=== PATIENT | male | born 1965 | race Caucasian/White ===

== ENCOUNTER 2021-08-29 23:49 | Observation (INO) | payer BC ==
[2021-08-30] MEDS ORDERED: CALCIUM CHLORIDE 100 MG/ML 10 ML SYRINGE IVP STA (00:22)
--- NOTE | 2021-08-30 00:25 | ED ---
Chest Pain HPI - General Chief Complaint: Chest Pain Stated Complaint: Chest Pain Time Seen by Provider: 08/30/21 00:01 Source: patient, RN notes reviewed, old records reviewed Mode of arrival: ambulatory Limitations: no limitations - History of Present Illness Initial Comments: This is a 56-year-old male to the ER for evaluation. Patient has no real s ignificant medical history coming in with chest pain today. Due to the chest pain patient took his blood pressure at home and noted to be significantly elevated. Symptoms have persisted and because patient come the emergency department tonight. Otherwise patient has no significant medical history takes no medications and has no other complaints. MD Complaint: chest pain -: hour(s) Onset: during rest Pain Location: left chest, right chest Pain Radiation: back Severity: moderate Severity scale (1-10): 5 Quality: heaviness Consistency: constant Improves With: nothing Worsens With: nothing Anginal Symptoms: nausea, dyspnea Other Symptoms: palpitations Treatments Prior to Arrival: none - Related Data Allergies Allergy/AdvReac Type Severity Reaction Status Date / Time No Known Allergies Allergy Verified 08/29/21 23:58 Review of Systems ROS Statement: Those systems with pertinent positive or pertinent negative responses have been documented in the HPI. ROS Other: All systems not noted in ROS Statement are negative. EKG Findings - EKG Comments: EKG Findings:: EKG is sinus bradycardia 58 ND 150 QRS 88 QTc 424 Past Medical History Past Medical History: Asthma History of Any Multi-Drug Resistant Organisms: None Reported Past Surgical History: Appendectomy Past Psychological History: No Psychological Hx Reported Smoking Status: Current every day smoker Past Alcohol Use History: Occasional Past Drug Use History: None Reported General Exam Limitations: no limitations Course Vital Signs 08/29/21 23:54 Temperature 99.2 F Pulse Rate 63 Respiratory 20 Rate Blood Pressure 159/95 O2 Sat by Pulse 95 Oximetry - Reevaluation(s) Reevaluation #1: 08/30/21 02:06 Medical record is reviewed Reevaluation #2: 08/30/21 02:06 Or pressure remains controlled here in the ER Reevaluation #3: 08/30/21 02:06 Patient's pain is controlled Reevaluation #4: 08/30/21 02:06 Patient family informed results and questions answered - Consultations Consultation #1: Spoke with Dr. Win who agrees to admit this patient Chest Pain MDM - MDM 56 male to the emergency department for evaluation of chest pain today. Patient has a CT angios which is negative for acute disease blood pressure was elevated, patient does have elevated troponin will be admitted for cardiology to evaluate Critical Care Time Critical Care Time: Yes Total Critical Care Time: 31 Disposition Clinical Impression: Atypical chest pain, Chest pain, Acute non-ST elevation myocardial infarction (NSTEMI) Disposition: ADMITTED IP TO THIS HOSP Condition: Serious Is patient prescribed a controlled substance at d/c from ED?: No Referrals: Princess Cai MD [Primary Care Provider] - 1-2 days
[2021-08-30] MEDS ORDERED: CALCIUM GLUCONATE 2 GM in SODIUM CHLORIDE 0.9% 100 ML IVPB ONE (00:30)
--- NOTE | 2021-08-30 00:57 | XR ---
EXAMINATION TYPE: XR chest 2V DATE OF EXAM: 08/30/2021 COMPARISON: NONE HISTORY: Pain TECHNIQUE: 2 views FINDINGS: There is no heart failure nor confluent pneumonic infiltrate. Costophrenic angles are clear . There are chest leads. Bony thorax is intact. IMPRESSION: Normal chest.
[2021-08-30 01:17] LABS: Basophils # (A) 0.1 k/uL (0-0.2); Basophils % (A) 1 %; Eosinophils # (A) 0.4 k/uL (0-0.7); Eosinophils % (A) 6 %; HCT 48.6 % (39.0-53.0); HGB 16.6 gm/dL (13.0-17.5); Lymphocytes # (A) 2.1 k/uL (1.0-4.8); Lymphocytes % (A) 32 %; MCH 31.6 pg (25.0-35.0); MCHC 34.1 g/dL (31.0-37.0); MCV 92.7 fL (80.0-100.0); Mean Platelet Volume 9.8; Monocytes # (A) 0.4 k/uL (0-1.0); Monocytes % (A) 7 %; Neutrophils # (A) 3.2 k/uL (1.3-7.7); Neutrophils % (A) 51 %; Platelet Count 162 k/uL (150-450); RBC 5.24 m/uL (4.30-5.90); RDW 12.6 % (11.5-15.5); WBC 6.4 k/uL (3.8-10.6)
[2021-08-30 01:28] LABS: ALT 26 U/L (4-49); AST 29 U/L (17-59); African American GFR (CKD) >90 (>60 ml/min/1.73 sqM); Albumin 4.2 g/dL (3.5-5.0); Alkaline Phosphatase 53 U/L (38-126); Anion Gap 8 mmol/L; Blood Urea Nitrogen 14 mg/dL (9-20); Calcium 10.2 mg/dL (8.4-10.2); Carbon Dioxide 21 mmol/L (22-30); Chloride 107 mmol/L (98-107); Glucose 116 mg/dL (74-99); Lipase 65 U/L (23-300); Magnesium 2.1 mg/dL (1.6-2.3); Non-African American GFR(CKD) >90 (>60 ml/min/1.73 sqM); Potassium 4.2 mmol/L (3.5-5.1); Sodium 136 mmol/L (137-145); Total Bilirubin 0.4 mg/dL (0.2-1.3); Total Protein 6.9 g/dL (6.3-8.2)
[2021-08-30 01:32] LABS: INR 0.9 (<1.2); Partial Thromboplastin Time 22.1 sec (22.0-30.0)
--- NOTE | 2021-08-30 01:51 | CT ---
EXAMINATION TYPE: CT angio chest DATE OF EXAM: 08/30/2021 COMPARISON: None HISTORY: pe CT DLP: 339.2 mGycm Automated exposure control for dose reduction was used. CONTRAST: Performed with IV Contrast, patient injected with 100 mL of Isovue 370. Images obtained from the thoracic inlet to the diaphragm with IV contrast. There are 3-D post process ed images. There is minimal subsegmental atelectasis at the lung bases. There is no evidence of pulmonary mass. Heart size is normal. There is no pericardial effusion. There is no mediastinal adenopathy. There are no hilar masses. There is normal contrast opacification of the pulmonary arteries. There are no fill ing defects. Thoracic aorta is intact. There is no aneurysm or dissection. The thoracic spine is intact. There is no compression fracture. Sternum is intact. The ribs are intac t. IMPRESSION: No evidence of pulmonary embolism. Mild subsegmental atelectasis at the lung bases. Normal heart.
--- NOTE | 2021-08-30 01:58 | CT ---
EXAMINATION TYPE: CT abdomen pelvis w con DATE OF EXAM: 08/30/2021 COMPARISON: None HISTORY: pain CT DLP: 868.8 mGycm Automated exposure control for dose reduction was used. CONTRAST: Performed with IV Contrast, patient injected with 100 mL of Isovue 370. Images obtained from the diaphragm to the floor the pelvis with IV contrast. Lung bases are clear of consolidation. There is no pleural effusion. There is no pericardial effusion . Liver spleen stomach pancreas gallbladder appear intact. Bile ducts are not dilated. There is no ad renal mass. Kidneys show satisfactory contrast opacification. There is no hydronephrosis. Delayed michelle ges show normal renal excretion. There are clips apparently from appendectomy. Bladder distends priscilla hly. There is fat containing left inguinal hernia. There is no free fluid in the pelvis. There is no sign of a pelvic mass. There is no mesenteric edema. There is no ascites or free air. There is no bowel obstruction. The lum bar vertebra have normal alignment. There is no compression fracture. The bony pelvis is intact. Hip joints are intact. IMPRESSION: Negative CT scan abdomen and pelvis.
[2021-08-30] MEDS ORDERED: NITROGLYCERIN SL TABS 0.4 MG TAB SUBLINGUAL PRN ×2 (02:03→10:04)
[2021-08-30] MEDS ORDERED: HEPARIN SODIUM 1,000 UN/ML (10ML VL) IV ONE (02:03)
[2021-08-30] MEDS ORDERED: ASPIRIN 81 MG PO STA (02:03)
[2021-08-30] MEDS ORDERED: HEPARIN SOD,PORK IN 0.45% NACL 25,000 UNIT in 0.45% NACL 1 250ML.BAG IV SCH (02:15)
[2021-08-30] MEDS: SODIUM CHLORIDE 0.9% 1,000 ML IV SCH (02:35)
[2021-08-30] MEDS: MORPHINE SULFATE 4 MG/ML SYRINGE IV PRN ×2 (02:37→07:06)
[2021-08-30] MEDS ORDERED: ATORVASTATIN 80 MG TAB PO SCH (09:00)
[2021-08-30] MEDS ORDERED: ALPRAZolam 0.25 MG TAB PO PRN (10:04)
[2021-08-30] MEDS ORDERED: ATORVASTATIN 80 MG TAB PO STA (10:04)
[2021-08-30] MEDS ORDERED: ASPIRIN 325 MG TAB PO STA (10:04)
[2021-08-30] MEDS ORDERED: ALPRAZolam 0.5 MG TAB PO PRN (10:04)
[2021-08-30 10:38] LABS: Glucose,Whole Blood 104 mg/dL (75-99)
[2021-08-30] MEDS: SODIUM CHLORIDE 0.9% 1,000 ML in EMPTY BAG 1 BAG IV SCH ×2 (10:54→23:39)
[2021-08-30] MEDS ORDERED: LIDOCAINE 1% INJ 10MG/ML (20 ML MDV) ONE (12:00)
[2021-08-30] MEDS ORDERED: VERAPAMIL 2.5 MG/ML 2 ML AMP ONE (12:00)
[2021-08-30] MEDS ORDERED: IV FLUID CONTINUATION 700 ML IV ONE (12:07)
[2021-08-30] MEDS ORDERED: fentaNYL (PF) 50 MCG/ML 2 ML AMP ONE (12:24)
--- NOTE | 2021-08-30 12:29 | CONS ---
CONSULTATION Mr. August is a 56-year-old male with a history of chronic tobacco use who presented with an episode of chest discomfort radiating to the right arm. Patient denies any prior similar symptoms in the past. He is usually active physically without difficulty. He denies any dizziness or palpitations. He was found to have evidence of troponin elevation. Patient denies any known history of coronary artery disease. He is usually active physically without difficulty. He has no history of hypertension, hyperlipidemia or documented diabetes. He is a smoker. His medication at home includes Trelegy Ellipta and albuterol. REVIEW OF SYSTEMS: RESPIRATORY SYSTEM: He had dyspnea on exertion but no recent wheezing or cough. GI SYSTEM: No recent GI bleeding. No peptic ulcer disease. SYSTEM: No dysuria or hematuria. NERVOUS SYSTEM: No stroke or seizure. PHYSICAL EXAMINATION: Eutwv-ycehz-mnqr-old male, alert, oriented, in no apparent distress. Blood pressure 115/90 with a heart rate in the 50s. HEAD: Normocephalic. EYES: Sclerae anicteric. NECK: Good carotid upstroke. No bruit. No jugular venous distention. LUNGS: Clear to auscultation. HEART: Regular rate and rhythm. S1, S2. No S3. No S4. No murmur or rub. ABDOMEN: Soft, nontender. Positive bowel sounds. No organomegaly. EXTREMITIES: No edema. Intact distal pulses. LAB DATA: Troponin 0.615 and 1.37. BUN and creatinine 14 and 0.88. Potassium 4.2. Hemoglobin of 16.6. EKG revealed a sinus mechanism, normal axis and intervals. No acute ST-segment changes. CT angiogram of the chest revealed no evidence of pulmonary embolism and his chest x-ray shows no acute infiltrate. IMPRESSION: 1. Non GL-omrotml-whtgxijin myocardial infarction. 2. History of chronic tobacco use. RECOMMENDATIONS: In view of the findings and the presentation, I have recommended proceeding with coronary angiography to assess his status and guide his treatment. The patient at home noted his blood pressure was elevated, but it is under good control at this time. I have discussed with him the findings and recommendations, and he is in full understanding and agreement. Thank you for this consult. Will follow with you. MMODL / IJN: [id number] /
[2021-08-30] MEDS ORDERED: fentaNYL (PF) 50 MCG/ML 2 ML AMP IV ONE (12:37)
[2021-08-30] MEDS ORDERED: SODIUM CHLORIDE 0.9% 500 ML 500 ML IV ONE (12:40)
[2021-08-30] MEDS ORDERED: MIDAZOLAM 2 MG/2 ML VIAL IV ONE (12:45)
[2021-08-30] MEDS ORDERED: LIDOCAINE 1% INJ 10MG/ML (20 ML MDV) SQ ONE (12:45)
[2021-08-30] MEDS ORDERED: HEPARIN SODIUM 1,000 UN/ML (10ML VL) ONE (12:52)
[2021-08-30] MEDS ORDERED: IOPAMIDOL-370 125ML BTL INJ ONE (13:01)
[2021-08-30] MEDS ORDERED: RX INFO: IV CONTRAST WAS GIVEN 1 EACH MISC MISCELLANE PRN (13:08)
[2021-08-30] MEDS ORDERED: SODIUM CHLORIDE 0.9% 1,000 ML IV SCH (13:15)
--- NOTE | 2021-08-30 13:54 | CC ---
CARDIAC CATHETERIZATION REPORT Mr. August is a 56-year-old male with known history of chronic tobacco use and family history of premature coronary artery disease who presented to the hospital with symptoms of chest discomfort and mild troponin elevation without electrocardiographic changes. In view of that, recommendation was made regarding cardiac catheterization. The procedure as well as its risks and the complications were discussed with the patient, who was in full understanding and agreement. PROCEDURE DESCRIPTION: The patient was brought to the clinical laboratory technician in a fasting, semi-sedated state after receiving fentanyl and Benadryl and achieving a moderate conscious sedated state. Using Xylocaine anesthesia and Seldinger technique, a 6-Malagasy sheath was introduced in the right radial artery. Selective right and left coronary angiography was performed using 5-Malagasy 3-1/2 bend right and left Juan catheters. Multiple views were taken of the arteries, including hemiaxial views. Following that, a 5-Malagasy tight pigtail catheter was introduced into the left ventricle, and left ventriculogram in the SUNG view was obtained. Following that, catheter and sheath were removed. Hemostasis was obtained with deployment of a TR band. There was no immediate complication. Patient was returned to his room in stable condition. Of note, the patient received 4000 units of intravenous heparin as well as intraarterial verapamil. FINDINGS: LEFT MAIN: This is a short-sized vessel bifurcating into left circumflex and left anterior descending artery. Left main coronary artery has no evidence of high-grade stenosis. LEFT ANTERIOR DESCENDING ARTERY: This is a large-sized vessel giving rise to a large diagonal branch. The LAD reaches toward the apex with a wrap around apex segment. The LAD after the takeoff of the first diagonal branch has a 10% to 20% percent plaque. The rest of the vessel has no high-grade stenosis. LEFT CIRCUMFLEX: This is a nondominant vessel, moderate in caliber, giving rise to two obtuse marginal branches. The second one is large in caliber. The left circumflex as well as its branches have no evidence of obstructive coronary artery disease. RIGHT CORONARY ARTERY: This is a large dominant vessel bifurcating distally into PDA and posterolateral segment and branches. The right coronary artery as well as its branches have no evidence of obstructive coronary artery disease. LEFT VENTRICULOGRAM: Left ventriculogram was performed in 30-degree SUNG view and revealed normal left ventricular size and systolic function. Ejection fraction is 60%. There was no significant mitral regurgitation. HEMODYNAMICS: There was no gradient across the aortic valve. The left ventricular end- diastolic pressure was 8 to 10 mmHg. CONCLUSION: 1. Minimal plaque in the mid LAD. 2. Normal left ventricular size and systolic function. RECOMMENDATIONS: At this time I will continue medical therapy. It is possible that the patient had vasospastic disease. There is no evidence to suggest haziness and ruptured plaque. I will continue the present medical therapy. I will encourage him to stop smoking. Depending on his progress, further recommendations will be made. Those findings and recommendations were discussed with the patient and his family, and they are in full understanding and agreement. Duration of the sedation was 19 minutes. ORION / THIERRYN: [id number] /
[2021-08-30] MEDS ORDERED: ALBUTEROL NEBULIZED 2.5 MG/3 ML INHALATION PRN (16:25)
--- NOTE | 2021-08-30 16:28 | P.HPIM ---
History of Present Illness H&P Date: 08/30/21 Didier August, is a 56-year-old male patient of Dr. Cia, who presented to [facility] emergency room with a chief complaint of chest pain He was evaluated in the emergency room vital examination on presentation revealed Laboratory data reveals a first troponin level of 0.615 Testing in the emergency room revealed Patient was admitted to medical floor for further evaluation and treatment, he was started on IV heparin cardiology consultation was requested Past medical history is significant for history of asthma patient denies any previous history of coronary artery disease On review of systems Patient was seen and examined on the medical floor, he is alert and oriented x 3 in no distress, he denies any complaints there is no fever or chills no headache or dizziness no chest pain at this time no shortness of breath no palpitation no cough no nausea or vomiting no abdominal pain no diarrhea no blood in the stools no burning with urination no frequency or urgency and no hematuria, there is no weakness or numbness in any of the extremities no change in vision speech or gait. Past Medical History Past Medical History: Asthma History of Any Multi-Drug Resistant Organisms: None Reported Past Surgical History: Appendectomy Past Psychological History: No Psychological Hx Reported Smoking Status: Current every day smoker Past Alcohol Use History: Occasional Past Drug Use History: None Reported - Past Family History Mother Additional Family Medical History / Comment(s): triple bypass Medications and Allergies Home Medications Medication Instructions Recorded Confirmed Type Albuterol Sulfate [Albuterol 2 puff INHALATION RT-QID PRN 08/30/21 08/30/21 History Sulfate Hfa] Fluticasone/Umeclidin/Vilanter 1 puff INHALATION RT-DAILY 08/30/21 08/30/21 History [Lisa Pace 100-62.5-25] Allergies Allergy/AdvReac Type Severity Reaction Status Date / Time No Known Allergies Allergy Verified 08/30/21 09:05 Physical Exam Vitals: Vital Signs Temp Pulse Pulse Pulse Pulse Resp BP 08/30/21 13:53 59 L 16 08/30/21 13:38 54 L 16 08/30/21 13:23 57 L 16 08/30/21 08:00 98.8 F 49 L 16 08/30/21 03:50 98.6 F 58 L 17 08/30/21 02:36 56 L 17 140/90 08/29/21 23:54 99.2 F 63 20 159/95 BP Pulse Ox 08/30/21 13:53 99/72 08/30/21 13:38 109/74 08/30/21 13:23 109/72 08/30/21 08:00 115/91 96 08/30/21 03:50 151/96 96 08/30/21 02:36 98 08/29/21 23:54 95 Intake and Output 08/30/21 08/30/21 08/30/21 06:59 14:59 22:59 Intake Total 785 Balance 785 Intake: IV 125 Intake, IV Titration 300 Amount Sodium Chloride 0.9% 1, 300 000 ml @ 75 mls/hr IV . [id number] [facility] Rx#:[id number] Oral 360 Other: # Voids 1 Weight 74.843 kg In general patient is alert and oriented x 3 in no distress HEENT head normocephalic and atraumatic Neck is supple no JVD no goiter no lymphadenopathy no carotid bruit Chest examination is clear to auscultation no crackles no wheezing Cardiac exam reveals regular heart sounds S1 and S2 no gallops no murmurs Abdomen is soft nontender no organomegaly with normal bowel sounds Extremity exam reveals no edema no cyanosis or clubbing Neurological examination reveals no gross focal deficits Results CBC & Chem 7: 08/30/21 00:59 08/30/21 00:59 Labs: Abnormal Lab Results - Last 24 Hours (Table) 08/30/21 08/30/21 08/30/21 Range/Units 00:59 00:59 05:35 APTT (22.0-30.0) sec Sodium 136 L (137-145) mmol/L Carbon Dioxide 21 L (22-30) mmol/L Glucose 116 H (74-99) mg/dL POC Glucose (mg/dL) (75-99) mg/dL Troponin I 0.615 H* 1.370 H* (0.000-0.034) ng/mL 08/30/21 08/30/21 08/30/21 Range/Units 09:28 09:28 10:36 APTT 37.6 H (22.0-30.0) sec Sodium (137-145) mmol/L Carbon Dioxide (22-30) mmol/L Glucose (74-99) mg/dL POC Glucose (mg/dL) 104 H (75-99) mg/dL Troponin I 1.190 H* (0.000-0.034) ng/mL Thrombosis Risk Factor Assmnt - Choose All That Apply Any of the Below Risk Factors Present?: Yes Each Factor Represents 1 point: Age 41-60 years, Obesity (BMI >25) Other Risk Factors: No Other congenital or acquired thrombophilia - If yes, enter type in comment: No Thrombosis Risk Factor Assessment Total Risk Factor Score: 2 Thrombosis Risk Factor Assessment Level: Low Risk Assessment and Plan Plan: Episode of chest pain with elevated troponin level suggestive of non-ST elevation myocardial infarction Patient is admitted to telemetry floor cardiology consultation was requested He is scheduled for cardiac catheterization on 08/30/2021 Underlying history of tobacco use Patient counseled in length to quit smoking Will start with nicotine patch at this time Underlying history of asthma Home inhalers reviewed and reordered At this time we are awaiting further intervention by cardiology will follow closely
--- NOTE | 2021-08-30 17:16 | ECHOF ---
Referral Reason:elevTrope MEASUREMENTS -------- HEIGHT: 170.2 cm WEIGHT: 74.8 kg BP: RVIDd: 2.9 cm (< 3.3) IVSd: 1.1 cm (0.6 - 1.1) LVIDd: 3.3 cm (3.9 - 5.3) LVPWd: 1.2 cm (0.6 - 1.1) IVSs: 1.2 cm LVIDs: 2.9 cm LVPWs: 1.4 cm LA Diam: 3.2 cm (2.7 - 3.8) LAESV Index (A-L): 21.59 ml/m Ao Diam: 3.4 cm (2.0 - 3.7) AV Cusp: 1.7 cm (1.5 - 2.6) LA Diam: 3.5 cm (2.7 - 3.8) MV EXCURSION: 17.007 mm (> 18.000) MV EF SLOPE: 64 mm/s (70 - 150) EPSS: 0.5 cm MV E Lino: 0.33 m/s MV DecT: 296 ms MV A Lino: 0.64 m/s MV E/A Ratio: 0.52 RAP: 5.00 mmHg RVSP: 14.14 mmHg FINDINGS -------- Sinus rhythm. This was a technically adequate study. The left ventricular size is normal. There is borderline concentric left ventricular hypertrophy. Overall left ventricular systolic function is normal with, an EF between 55 - 60 %. The diastolic filling pattern is normal for the age of the patient 4.39. The right ventricle is normal in size. Normal LA size by volume 22+/-6 ml/m2. The right atrial size is normal. The aortic valve is trileaflet, and appears structurally normal. No aortic stenosis or regurgitation. There is no evidence of aortic regurgitation. The mitral valve is normal. There is trace mitral regurgitation. The tricuspid valve appears structurally normal. Mild tricuspid regurgitation present. Right vent ricular systolic pressure is normal at < 35 mmHg. There is no pulmonic regurgitation present. There is no pericardial effusion. CONCLUSIONS -------- 1. There is borderline concentric left ventricular hypertrophy. 2. Overall left ventricular systolic function is normal with, an EF between 55 - 60 %. 3. Normal LA size by volume 22+/-6 ml/m2. 4. The aortic valve is trileaflet, and appears structurally normal. No aortic stenosis or regurgitati on. 5. There is trace mitral regurgitation. 6. Mild tricuspid regurgitation present. 7. There is no pericardial effusion. [employer] PROFESSOR: Shaila Rodrigues RDCS
[2021-08-30] MEDS: NICOTINE 14MG/24HR PATCH TRANSDERM SCH (18:16)
[2021-08-30 23:33] VITALS: RESP 16
[2021-08-31] MEDS: SODIUM CHLORIDE 0.9% 1,000 ML IV SCH (06:36)
[2021-08-31] MEDS ORDERED: HEPARIN SODIUM,PORCINE 10,000 UNIT in SODIUM CHLORIDE 0.9% 1,000 ML IRRIGATION PRN (07:00)
[2021-08-31] MEDS ORDERED: HEPARIN SODIUM,PORCINE 2,500 UNIT in SODIUM CHLORIDE 0.9% 250 ML IRRIGATION PRN (07:00)
[2021-08-31] MEDS ORDERED: SYMBICORT 80-4.5 MCG INHALER INHALATION SCH (08:00)
[2021-08-31] MEDS ORDERED: NON FORMULARY DRUG (Fluticasone/Umeclidin/Vilanter [Trelegy Ellipta 100-62.5-25] 1 EACH Ea INHALATION SCH (08:00)
[2021-08-31] MEDS ORDERED: IPRATROPIUM 0.5 MG/2.5 ML NEBU INHALATION SCH (08:00)
[2021-08-31 08:51] VITALS: PULSE 60
[2021-08-31] MEDS ORDERED: ASPIRIN 81 MG PO SCH (09:00)
[2021-08-31] MEDS ORDERED: ASPIRIN 325 MG TAB PO SCH (09:00)
[2021-08-31] MEDS ORDERED: amLODIPine 2.5 MG TAB PO SCH (09:00)
[2021-08-31] MEDS ORDERED: ATORVASTATIN 40 MG TAB PO SCH (09:00)
[2021-08-31 09:20] LABS: African American GFR (CKD) >90 (>60 ml/min/1.73 sqM); Anion Gap 6 mmol/L; Blood Urea Nitrogen 13 mg/dL (9-20); Calcium 8.5 mg/dL (8.4-10.2); Carbon Dioxide 23 mmol/L (22-30); Chloride 108 mmol/L (98-107); Glucose 169 mg/dL (74-99); Non-African American GFR(CKD) >90 (>60 ml/min/1.73 sqM); Sodium 137 mmol/L (137-145)
[2021-08-31] MEDS: NICOTINE 14MG/24HR PATCH TRANSDERM SCH (09:24)
--- NOTE | 2021-08-31 10:38 | P.DS ---
Providers Date of admission: 08/30/21 02:03 Expected date of discharge: 08/31/21 Attending physician: Anette Win Consults: 08/30/21 02:03 Consult Physician Urgent Consulting Provider: Jeramy Fong Consult Reason/Comments: nctemi Do you want consulting provider notified?: Yes Primary care physician: Princess Cai Hospital Course: Discharge diagnosis Episode of chest pain with elevated troponin level suggestive of non-ST elevation myocardial infarction Patient is admitted to telemetry floor cardiology consultation was requested He is scheduled for cardiac catheterization on 08/30/2021 Underlying history of tobacco use Patient counseled in length to quit smoking Will start with nicotine patch at this time Underlying history of asthma Home inhalers reviewed and reordered At this time we are awaiting further intervention by cardiology will follow closely Hospital course Didier August, is a 56-year-old male patient of Dr. Cai, who presented to [facility] emergency room with a chief complaint of chest pain He was evaluated in the emergency room vital examination on presentation revealed Laboratory data reveals a first troponin level of 0.615 Testing in the emergency room revealed Patient was admitted to medical floor for further evaluation and treatment, he was started on IV heparin cardiology consultation was requested Past medical history is significant for history of asthma patient denies any previous history of coronary artery disease On review of systems Patient was seen and examined on the medical floor, he is alert and oriented x 3 in no distress, he denies any complaints there is no fever or chills no headache or dizziness no chest pain at this time no shortness of breath no palpitation no cough no nausea or vomiting no abdominal pain no diarrhea no blood in the stools no burning with urination no frequency or urgency and no hematuria, there is no weakness or numbness in any of the extremities no change in vision speech or gait. On 08/31/2021 patient underwent cardiac catheterization yesterday revealing minimal plaque in the mid LAD. Normal left ventricle size and systolic function. Patient is currently resting comfortably in bed. At this time patient denies chest pain or shortness breath. She denies any urinary burning or frequency. Patient reports he has been up ambulating without issue. Right radial site is clean dry and intact. Current vitals 98.0 temp, heart rate 60, respiratory rate 16 and blood pressure 128/74. Patient pulse ox 96% on room air. Patient again indicated on the importance of complete smoking sensation. Patient also started on Norvasc aspirin and Lipitor during hospital stay. Awaiting cardiology for final clearance this was discussed with nursing staff and verbal understanding. Patient to follow-up with PCP and cardiology services for further management Patient Condition at Discharge: Stable Plan - Discharge Summary Discharge Rx Participant: No New Discharge Prescriptions: New amLODIPine [Norvasc] 2.5 mg PO DAILY 30 Days #30 tab Aspirin 81 mg PO DAILY 30 Days #30 tab Nicotine 14Mg/24Hr Patch [Habitrol] 1 patch TRANSDERM DAILY 30 Days #30 patch Atorvastatin [Lipitor] 40 mg PO DAILY 30 Days #30 tab Continue Fluticasone/Umeclidin/Vilanter [Trelegy Ellipta 100-62.5-25] 1 puff INHALATION RT-DAILY Albuterol Sulfate [Albuterol Sulfate Hfa] 2 puff INHALATION RT-QID PRN PRN Reason: Shortness Of Breath Discharge Medication List Albuterol Sulfate [Albuterol Sulfate Hfa] 2 puff INHALATION RT-QID PRN 08/30/21 [History] Fluticasone/Umeclidin/Vilanter [Trelegy Ellipta 100-62.5-25] 1 puff INHALATION RT-DAILY 08/30/21 [History] Aspirin 81 mg PO DAILY 30 Days #30 tab 08/31/21 [Rx] Atorvastatin [Lipitor] 40 mg PO DAILY 30 Days #30 tab 08/31/21 [Rx] Nicotine 14Mg/24Hr Patch [Habitrol] 1 patch TRANSDERM DAILY 30 Days #30 patch 08/31/21 [Rx] amLODIPine [Norvasc] 2.5 mg PO DAILY 30 Days #30 tab 08/31/21 [Rx] Follow up Appointment(s)/Referral(s): Princess Cai MD [Primary Care Provider] - 1-2 days Jeramy Fong MD [STAFF PHYSICIAN] - 1 Week Activity/Diet/Wound Care/Special Instructions: Activity as tolerated Diet heart healthy Discharge Disposition: HOME SELF-CARE
[2021-08-31 10:55] VITALS: BP 107/62; TEMP 98.2
[2021-08-31 11:48] LABS: Chol/HDL Ratio 4.38 Ratio; LDL Cholesterol,Calculated 95.7 mg/dL (0.0-131.0)
--- NOTE | 2021-08-31 13:14 | PN ---
PROGRESS NOTE Mr. August is a 56-year-old male who presented with symptoms of chest discomfort and he had mild troponin elevation without EKG changes. Underwent cardiac catheterization and was found to have no significant obstructive disease with preserved systolic function raising possibility of vasospastic disease. He is doing well this morning. He has no chest pain. No dizziness. No palpitation. No nausea. He continued on aspirin once a day, amlodipine 2.5 mg daily, Lipitor 40 mg daily. PHYSICAL EXAMINATION: Blood pressure 128/70 with a heart rate in the 60s. LUNGS: Clear. HEART: Regular rate and rhythm. S1, S2. No S3. No rub. ABDOMEN: Soft, nontender. Right radial pulse intact. LAB DATA: Lab data revealed BUN and creatinine 13 and 0.9. His echocardiogram revealed a preserved systolic function. IMPRESSION: 1. Non ST-segment elevation myocardial infarction, could be vasospastic disease. No evidence to suggest a ruptured plaque. 2. History of chronic tobacco use. RECOMMENDATIONS: From the cardiac standpoint, the patient should be able to be discharged home. I have discussed with him the importance of smoking cessation. He will continue on the low dose of calcium channel kirby and depending on his progress, further recommendations will be made. MMODL / IJN: [id number] /
== END 2021-08-31 11:30 | disposition home or self-care (01) ==
LOC: EC 23:49 → 3SCARD 08-30 02:03 → INTOOBSV 08-30 02:03 → 3SCARD 08-30 03:17 → UNDODISIN 08-31 11:30
PROVIDERS: ADMIT Internal Medicine; ATTEND Internal Medicine
DX: R07.89 Other chest pain (principal); R77.8 Other specified abnormalities of plasma proteins; R11.0 Nausea; R00.2 Palpitations; R03.0 Elevated blood-pressure reading, without diagnosis of hypertension; J45.909 Unspecified asthma, uncomplicated; F17.200 Nicotine dependence, unspecified, uncomplicated; I07.1 Rheumatic tricuspid insufficiency; E66.9 Obesity, unspecified; Z68.26 Body mass index [BMI] 26.0-26.9, adult; Z20.822 Contact with and (suspected) exposure to COVID-19; Z71.6 Tobacco abuse counseling; Z79.51 Long term (current) use of inhaled steroids; Z79.899 Other long term (current) drug therapy; Z90.89 Acquired absence of other organs; Z82.49 Family history of ischemic heart disease and other diseases of the circulatory system
CPT/HCPCS: 96376; 96365; 96375; 99291; 36415; 94640 ×2; 93005; 93306; 93458; 85379; 83880; 80061; 80053; 80048; 83690; 83735; 84484; 85025; 85610; 85730; 87635; 71046; 71275; 74177; G0378 ×2; C1894; C1769; S4990 ×2; J2250; J2270; J2001; J3010; J1644 ×3; Q9967 ×2

== ENCOUNTER 2022-10-31 10:06 | Emergency (ER) | payer BC ==
[2022-10-31] MEDS ORDERED: IBUPROFEN 600 MG TAB PO STA (11:08)
[2022-10-31] MEDS ORDERED: ACETAMINOPHEN TAB 325 MG TAB PO STA (11:08)
--- NOTE | 2022-10-31 11:11 | ED ---
URI HPI - General Chief Complaint: Upper Respiratory Infection Stated Complaint: DEB, cough, chest discomfort Time Seen by Provider: 10/31/22 11:03 Source: patient, RN notes reviewed, old records reviewed Mode of arrival: ambulatory Limitations: no limitations - History of Present Illness Initial Comments: [id number] 57-year-old male presents to the emergency room with complaints of cough congestion and fever for the past 2 days. Patient is a half pack a day smoker. History of asthma. Denies any history of COPD. MD Complaint: fever, cough, sore throat -: days(s) (2) Severity scale (1-10): 9 Context: sick contacts (family at bedside also c/o tickle in throat) Associated Symptoms: abdominal pain (from coughing) Treatments Prior to Arrival: none - Related Data Home Medications Medication Instructions Recorded Confirmed Albuterol Sulfate [Albuterol 2 puff INHALATION RT-Q6H PRN 08/30/21 10/31/22 Sulfate Hfa] Fluticasone/Umeclidin/Vilanter 1 puff INHALATION RT-DAILY 08/30/21 10/31/22 [Trelemeggan Ellipta 100-62.5-25] Famotidine [Pepcid] 20 mg PO DAILY 10/31/22 10/31/22 Levothyroxine Sodium [Synthroid] 112 mcg PO DAILY 10/31/22 10/31/22 Loratadine [Claritin] 10 mg PO DAILY 10/31/22 10/31/22 Previous Rx's Medication Instructions Recorded Aspirin 81 mg PO DAILY 30 Days #30 tab 08/31/21 Atorvastatin [Lipitor] 40 mg PO DAILY 30 Days #30 tab 08/31/21 amLODIPine [Norvasc] 2.5 mg PO DAILY 30 Days #30 tab 08/31/21 Oseltamivir [Tamiflu] 75 mg PO Q12HR #10 cap 10/31/22 Allergies Allergy/AdvReac Type Severity Reaction Status Date / Time No Known Allergies Allergy Verified 10/31/22 11:57 Review of Systems ROS Statement: Those systems with pertinent positive or pertinent negative responses have been documented in the HPI. ROS Other: All systems not noted in ROS Statement are negative. Past Medical History Past Medical History: Asthma History of Any Multi-Drug Resistant Organisms: None Reported Past Surgical History: Appendectomy Past Psychological History: No Psychological Hx Reported Smoking Status: Current every day smoker Past Alcohol Use History: Occasional Past Drug Use History: None Reported - Past Family History Mother Additional Family Medical History / Comment(s): triple bypass General Exam Limitations: no limitations General appearance: alert, in no apparent distress Head exam: Present: atraumatic Eye exam: Absent: scleral icterus, conjunctival injection, periorbital swelling, periorbital tenderness ENT exam: Present: mucous membranes moist Expanded Mouth exam: Present: tongue normal, tongue elevation. Absent: drooling, trismus, muffled voice Throat exam: negative: tonsillar erythema, tonsillomegaly, tonsillar exudate, R peritonsillar mass, L peritonsillar mass Respiratory exam: Absent: respiratory distress, wheezes, rales, rhonchi, stridor, chest wall tenderness, accessory muscle use Cardiovascular Exam: Present: regular rate Neurological exam: Present: alert, oriented X3 Psychiatric exam: Present: normal affect, normal mood Skin exam: Present: warm, dry, normal color. Absent: cyanosis, diaphoretic, pallor Course Vital Signs 10/31/22 10/31/22 10/31/22 10:15 12:07 13:09 Temperature 101.5 F H 98 F 101 F H Pulse Rate 93 71 Respiratory 20 18 Rate Blood Pressure 113/75 113/69 O2 Sat by Pulse 96 96 95 Oximetry Medical Decision Making - Medical Decision Making Patient was given Tylenol and Motrin for his fever. He is influenza A positive. Chest x-ray interpreted by me shows trachea midline, no areas of consolidation. Radiologist interpretation no acute cardiopulmonary disease or process. He was prescribed Tamiflu as symptoms started two days ago. I explained that smoking will increase the duration of his illness and increase his risk for COPD and chronic illnesses. He was directed to return emergency room or concerning symptoms. He is agreeable to this plan. Case discussed with Dr. Calles. - Lab Data Lab Results 10/31/22 Range/Units 11:34 Influenza Type A (PCR) Detected A (Not Detectd) Influenza Type B (PCR) Not Detected (Not Detectd) RSV (PCR) Not Detected (Not Detectd) SARS-CoV-2 (PCR) Not Detected (Not Detectd) Disposition Clinical Impression: Influenza Disposition: HOME SELF-CARE Condition: Good Instructions (If sedation given, give patient instructions): Influenza (ED) Additional Instructions: Increase your fluid intake. Take the Tamiflu as prescribed. You can also take Tylenol and Motrin as needed for pain, discomfort or fevers. I also recommend vitamin C, vitamin D and zinc daily. Follow-up with the primary care doctor next week and return to the emergency room with a nor concerning symptoms. Prescriptions: Oseltamivir [Tamiflu] 75 mg PO Q12HR #10 cap Is patient prescribed a controlled substance at d/c from ED?: No Referrals: Princess Cai MD [Primary Care Provider] - 1-2 days Time of Disposition: 12:44
--- NOTE | 2022-10-31 11:35 | XR ---
EXAMINATION TYPE: XR chest 2V DATE OF EXAM: 10/31/2022 11:24 AM COMPARISON: Chest radiographs from 08/30/2021 TECHNIQUE: XR chest 2V Portable AP radiograph of the chest. CLINICAL INDICATION:Male, 57 years old with history of cough fever; FINDINGS: Lungs/Pleura: There is no evidence of pleural effusion, focal consolidation, or pneumothorax. Pulmonary vascularity: Unremarkable. Heart/mediastinum: Cardiomediastinal silhouette is unremarkable. Musculoskeletal: No acute osseous pathology. IMPRESSION: No acute cardiopulmonary disease/process.
[2022-10-31 13:10] VITALS: BP 113/69; PULSE 71; RESP 18; TEMP 101
== END 2022-10-31 13:09 | disposition home or self-care (01) ==
LOC: EC 10:06
DX: J10.1 Influenza due to other identified influenza virus with other respiratory manifestations (principal); J45.909 Unspecified asthma, uncomplicated; F17.200 Nicotine dependence, unspecified, uncomplicated; Z20.822 Contact with and (suspected) exposure to COVID-19
CPT/HCPCS: 71046; 87636; 99285

== ENCOUNTER → 2023-12-13 | Outpatient (CLI) | payer BC ==
--- NOTE | 2023-12-15 15:30 | CTL ---
EXAMINATION TYPE: CT Low Dose Lung DATE OF EXAM ORDERED: 12/13/2023 HISTORY: . Lung cancer screening CT DLP: 110.[address] CTDI: 3.1 mGy Automated exposure control for dose reduction was used. SCREENING VISIT: Initial COMPARISON: None TECHNIQUE: Low dose computed tomography scan was performed through the chest at 1 mm thick sections a nd reconstructed images in the coronal plane at [address] DIAGNOSTIC QUALITY: Satisfactory FINDINGS: LUNG NODULES: Present, detailed below: 1. There is a 1.1 x 1.6 cm radiodensity posterior lateral right apex as. There is series 4 image 27. 2. There is a 0.6 cm pleural-based nodule posterior lateral right upper lung (series 4 image 16. LUNGS: COPD: Severity: Mild Fibrosis: Severity: None Lymph nodes: None Other findings: None RIGHT PLEURAL SPACE: Effusion: None Calcification: None Thickening: None Pneumothorax: None LEFT PLEURAL SPACE: Effusion: None Calcification: None Thickening: None Pneumothorax: None HEART: Heart Size: Normal Coronary calcification: None Pericardial effusion: None OTHER FINDINGS: Upper abdomen: Normal Bony thorax: Normal Supraclavicular region: Normal Other: Ascending thoracic aorta at the level the main pulmonary artery measures 3.5 cm. The main pul monary artery at the bifurcation measures 2.2 cm. IMPRESSION: 1. Nodularity in the right upper lung field. Consider PET/CT to evaluate right apical lobular density . FOLLOW UP CT CHEST RECOMMENDATION: 4 CT LUNG RAD: Lung-Rad 4A Suspicious
== END | disposition home or self-care (01) ==
LOC: RADCTMAIN 08:20
PROVIDERS: ATTEND Family Medicine
DX: Z12.2 Encounter for screening for malignant neoplasm of respiratory organs (principal); J98.4 Other disorders of lung; F17.210 Nicotine dependence, cigarettes, uncomplicated
CPT/HCPCS: 71271

== ENCOUNTER → 2024-01-07 | Outpatient (CLI) | payer BC ==
--- NOTE | 2024-01-10 00:14 | PE ---
EXAMINATION TYPE: PET CT fusion skull to thigh DATE OF EXAM: 01/07/2024 CLINICAL INDICATION:Male, 58 years old with history of R91.8; TECHNIQUE: Following the intravenous administration of 10.05 mCi of F-18 FDG, whole body images are performed from the skull base to the midthigh. Images are reviewed on the computer in the coronal, axial, and sagittal planes. Reconstructed rotating images are created on independent workstation and reviewed on the computer. A non-contrast CT is performed in conjunction with the PET scan. Glucose level 92 mg/dL CT DLP: 148 mGycm, Automated exposure control for dose reduction was used. COMPARISON: CT 12/13/2023, PET/CT None, FINDINGS: Mediastinal SUV mean is 2.2 . Hepatic parenchyma SUV mean is 3.0. SKULL BASE AND NECK: No suspicious radiotracer activity. CHEST, MEDIASTINUM, AND HILAR REGION: No suspicious radiotracer activity. No greater than 1.0 cm pulm onary nodules. Right lung apex nodular densities compatible with scarring. No abnormal FDG activity i dentified. A right upper lateral posterior pulmonary nodule measuring 4 mm is below the sensitivity f or PET/CT. ABDOMEN AND PELVIS: No suspicious radiotracer activity. MUSCULOSKELETAL STRUCTURES: No suspicious radiotracer activity. OTHER CT: Bilateral inguinal hernias. The urinary bladder is incompletely distended. Evidence of prio r appendectomy. The heart is mildly enlarged for size. IMPRESSION: Right apical pleural scarring no evidence for abnormal FDG activity within the exam. Consider yearly low-dose lung cancer screening.
== END | disposition home or self-care (01) ==
LOC: RADPETMAIN 14:21
PROVIDERS: ATTEND Family Medicine
DX: J98.4 Other disorders of lung (principal)
CPT/HCPCS: 78815; A9552

== ENCOUNTER → 2024-01-24 | Outpatient (CLI) | payer BC ==
[2024-01-24 18:24] LABS: Basophils # (A) 0.14 X 10*3/uL (0.00-0.10); Basophils % (A) 2.1 %; Eosinophils # (A) 0.47 X 10*3/uL (0.04-0.35); Eosinophils % (A) 7.1 %; HCT 45.7 % (39.6-50.0); HGB 15.4 g/dL (13.0-17.0); Lymphocytes # (A) 1.94 X 10*3/uL (0.90-5.00); Lymphocytes % (A) 29.4 %; MCH 30.7 pg (27.0-32.0); MCHC 33.7 g/dL (32.0-37.0); Mean Platelet Volume 12.4 FL (9.5-12.2); Monocytes # (A) 0.49 X 10*3/uL (0.20-1.00); Monocytes % (A) 7.4 %; NRBC Per 100 WBC 0 X 10*3/uL (0.00-0.01); Neutrophils # (A) 3.54 X 10*3/uL (1.80-7.70); Neutrophils % (A) 53.8 %; Platelet Count 165 X 10*3/uL (140-440); RBC 5.02 X 10*6/uL (4.40-5.60); RDW 12.7 % (11.5-14.5); WBC 6.59 X 10*3/uL (4.50-10.00)
== END | disposition home or self-care (01) ==
LOC: LABPAT 10:34
PROVIDERS: ATTEND Surgery
DX: Z01.812 Encounter for preprocedural laboratory examination (principal); K40.90 Unilateral inguinal hernia, without obstruction or gangrene, not specified as recurrent; D64.9 Anemia, unspecified; F17.200 Nicotine dependence, unspecified, uncomplicated; R00.1 Bradycardia, unspecified
CPT/HCPCS: 36415; 85025; 86850; 86900; 86901; 93005

== ENCOUNTER 2024-01-31 05:45 | Day surgery (SDC) | payer BC ==
[2024-01-21 11:56] VITALS: BMI 26.6
[~2024-01-31 05:45] MED LIST: HEPARIN SODIUM,PORCINE 5,000 UNIT/ML 1 ML VIAL SQ PRN
[2024-01-31] MEDS ORDERED: droPERidol 5 MG/2 ML VIAL IVP ONE (06:00)
[2024-01-31] MEDS ORDERED: LIDOCAINE 1% (10MG/ML) FOR IV START INTRADERMA PRN (06:00)
[2024-01-31] MEDS: ACETAMINOPHEN TAB 500 MG TAB PO PRN (06:27)
[2024-01-31] MEDS: LACTATED RINGERS 1,000 ML IV SCH (06:27)
[2024-01-31] MEDS: DEXAMETHASONE SOD PHOSPHATE 4 MG/ML 1 ML VIAL IV ONE (06:27)
[2024-01-31] MEDS: ONDANSETRON 4 MG/2 ML VIAL IVP ONE (06:28)
[2024-01-31] MEDS ORDERED: HYDROmorphone 0.5 MG/0.5 ML SYRINGE IVP PRN (07:00)
[2024-01-31] MEDS: MIDAZOLAM 2 MG/2 ML VIAL IVP ONE (07:28)
[2024-01-31] MEDS ORDERED: LIDOCAINE 1% INJ 10MG/ML (20 ML MDV) ONE (07:35)
[2024-01-31] MEDS ORDERED: fentaNYL (PF) 50 MCG/ML 2 ML AMP ONE (07:35)
[2024-01-31] MEDS ORDERED: GLYCOPYRROLATE 0.2 MG/ML 2 ML VIAL ONE (07:35)
[2024-01-31] MEDS ORDERED: ROPIVACAINE 5 MG/ML 30 ML VIAL ONE (07:35)
[2024-01-31] MEDS: TAMSULOSIN 0.4 MG CAP.ER.24H PO ONE (07:35)
[2024-01-31] MEDS ORDERED: SUCCINYLCHOLINE CHLORIDE 200 MG/10 ML VIAL IV ONE (07:35)
[2024-01-31] MEDS ORDERED: HYDROmorphone (PF) 1 MG/ML ONE (07:35)
[2024-01-31] MEDS ORDERED: ROCURONIUM 10 MG/ML (5 ML VIAL) IV ONE (07:35)
[2024-01-31] MEDS: HEPARIN SODIUM,PORCINE 5,000 UNIT/ML 1 ML VIAL SQ ONE (07:35)
[2024-01-31] MEDS ORDERED: NEOSTIGMINE 1 MG/ML 10 ML VIAL ONE (07:35)
[2024-01-31] MEDS ORDERED: DEXAMETHASONE SOD PHOSPHATE 4 MG/ML 1 ML VIAL ONE (07:35)
[2024-01-31] MEDS ORDERED: PROPOFOL 10 MG/ML 20 ML VIAL IV ONE (07:35)
[2024-01-31] MEDS ORDERED: SODIUM CHLORIDE 0.9% (PF) 10 ML VIAL ONE (07:35)
[2024-01-31] MEDS: BUPIVACAINE (PF) 0.25% 30 ML VIAL SQ ONE ×3 (07:57→08:04)
--- NOTE | 2024-01-31 10:00 | P.OP ---
Date of Procedure: 01/31/24 Procedure(s) Performed: PREOPERATIVE DIAGNOSIS: Ventral hernia, left inguinal hernia POSTOPERATIVE DIAGNOSIS: Same PROCEDURE: Open repair ventral hernia with mesh, laparoscopic da Valentín assisted repair left inguinal hernia with mesh SURGEON: Dr. Heck ANESTHESIA: General OPERATIVE PROCEDURE DETAILS: Patient was placed in the operating table in the supine position. The patient was placed under general anesthesia. The abdomen was prepped and draped in usual sterile fashion. The site of the ventral hernia was present in the upper midabdomen. A vertical incision was made overlying the palpable mass. The hernia sac was easily identified. This was opened. Using that opening we placed a 8 mm trocar into the abdominal cavity. Insufflation took place through that Location. 2 additional 8 mm trochars were placed in the right upper and left upper quadrants. The robot was undocked. The pelvis was inspected. There was no visible hernia on the right-hand side. The patient had a moderate sized direct hernia on the left-hand side. Preoperatively the patient had evidence of scrotal ecchymosis and some bruising in the suprapubic location. Intraoperatively we saw no evidence of any bruising or hematoma formation. The peritoneum was incised in a horizontal fashion cephalad to the internal inguinal ring. Following that careful dissection of the preperitoneal space took place. This took place using both electrocautery, sharp dissection but primarily blunt dissection. Visualization of the pubic tubercle and Solo's ligament took place medially. Full dissection took place laterally as well. The hernia sac was fully dissected. Once we had adequate space the [id number] Progrip mesh was advanced into the preperitoneal space and flattened out appropriately to cover all potential hernia sites. The mesh was sutured to Solo's ligament in a running fashion using a absorbable 30V lock suture. The peritoneal defect was then closed using a absorbable 2-0 VLok suture. The hernia sac was incorporated into the peritoneal closure to help prevent future recurrence. The pneumoperitoneum was then evacuated. Attention was then directed again to the ventral hernia site. The fascia around the defect was cleared of adherent fatty tissue. A second defect measuring only about 4 mm was seen inferior and to the right of the main fascial defect. The fascial defect at the ventral hernia site measured 1.5 x 1 cm. The pre-peritoneal space was dissected. I placed a 4.3 cm mesh in the preperitoneal space. This was sutured to the fascia using trans-fascial 0 Ethibond sutures. The defect was then closed horizontally using interrupted mattress vest over pants fashion 0 Ethibond sutures. The small formal meter defect was closed using a [id number] 0 Ethibond stitch. The area was then irrigated with saline. No bleeding was seen. The subcutaneous tissues were closed using 3-0 Vicryl sutures. The skin at all 3 sites were closed using 4-0 Monocryl subcuticular sutures. Skin glue was then applied. HERNIA CHARACTERISTICS: Length: 1 cm Width: 1.5 cm Type: Ventral TYPE OF MESH USED: 4.3 cm ventral X, 15 x 10 cm progrip LOCATION OF MESH: Sub-lay FIXATION: 0 Ethibond and 30V LOC PREOPERATIVE DISCUSSION ON SMOKING CESSASTION: Yes PREOPERATIVE DISCUSSION ON MORBID OBESITY: Yes PREOPERATIVE DISCUSSION ON APPROPRIATE USE OF NARCOTIC USE: Yes PREOPERATIVE EDUCATION: Multi Modal, Smoking Cessation and Weight Loss with BMI over 35. DISPOSITION: Stable to recovery room
[2024-01-31 10:33] VITALS: TEMP 98.4
[2024-01-31] MEDS: LACTATED RINGERS 1,000 ML IV ONE (10:48)
[2024-01-31] MEDS: KETOROLAC 15 MG/ML 1 ML VIAL ONE (11:20)
[2024-01-31] MEDS: HYDROmorphone 0.5 MG/0.5 ML SYRINGE IVP ONE ×2 (11:21→11:22)
[2024-01-31] MEDS ORDERED: ACETAMINOPHEN TAB 325 MG TAB PO SCH (12:00)
[2024-01-31] MEDS: TAMSULOSIN 0.4 MG CAP.ER.24H PO STA (12:33)
[2024-01-31] MEDS ORDERED: IBUPROFEN 600 MG TAB PO SCH (13:00)
[2024-01-31 14:59] VITALS: BP 128/72; PULSE 64; RESP 16
--- NOTE | 2024-01-31 20:25 | P.ANPRN ---
Procedure Note - Anesthesia - Nerve Block Performed Bilateral Erector Spinae Single Time Out Performed: Yes Date of Procedure: 01/31/24 Procedure Start Time: : Procedure Stop Time: :32 Location of Patient: PreOp Indication: Acute Post-Operative Pain, Requested by Surgeon Sedation Type: Sedate with meaningful contact maintained Preparation: Sterile Prep Position: Prone Needle Types: Pajunk Needle Gauge: 21 Ultrasound used to visualize needle placement: Yes Ultrasound used to observe medication spread: Yes Blood Aspirated: No Pain Paresthesia on Injection Noted: No Resistance on Injection: Normal Image Stored and Saved: Yes Events: Uneventful and Well Tolerated (Ropivacaine 0.5% 15 cc plus normal saline 10 cc plus dexamethasone 4 mg given bilaterally at L1)
== END 2024-01-31 15:28 | disposition home or self-care (01) ==
LOC: OR 05:45
PROVIDERS: ATTEND Surgery
DX: K40.90 Unilateral inguinal hernia, without obstruction or gangrene, not specified as recurrent (principal); K43.9 Ventral hernia without obstruction or gangrene; G89.18 Other acute postprocedural pain; J45.909 Unspecified asthma, uncomplicated; K21.9 Gastro-esophageal reflux disease without esophagitis; E07.9 Disorder of thyroid, unspecified; Z79.82 Long term (current) use of aspirin; Z79.890 Hormone replacement therapy; Z79.899 Other long term (current) drug therapy; Z79.51 Long term (current) use of inhaled steroids; F17.200 Nicotine dependence, unspecified, uncomplicated
CPT/HCPCS: 49591; 49650; S2900; 64999; 88302